=== PATIENT | female | born 2005 | race Caucasian/White ===

== ENCOUNTER 2024-01-23 13:52 | Emergency (ER) | payer OTHER ==
[~2024-01-23] VITALS: Ht 160 cm; Wt 52.9 kg
[2024-01-23 16:31] VITALS: BP 113/67
== END 2024-01-23 16:34 | disposition home or self-care (01) ==
LOC: ED 13:52
DX: M21.611 Bunion of right foot (principal)
CPT/HCPCS: 73630; 99283